=== PATIENT | female | born 1935 | race Caucasian/White ===

== ENCOUNTER → 2016-06-03 | Outpatient (CLI) | payer MEDICARE ==
[~2016-06-03] MED LIST: DOCU-143 PO; ESTR42.52 VG; HYDR-3454 PO; PNT40TEC PO; SCR1T1 PO
--- OUTSIDE RECORDS SUMMARY | 2016-06-03 13:54 | XMS REPORT | Continuity of Care Document ---
Author Author [facility] Organization [facility] Address Unknown Phone Unavailable Care Team Providers Care Hr Receptionist Name Role Phone MERLINE GOSS MD PCP Insurance Providers Payer Name Policy Number Subscriber Name Relationship Wps Medicare [id number] Diana Moon 18 Self / Same As Patient Blue [employer] Mcr Supp [id number] Diana Moon 18 Self / Same As Patient Advance Directives Directive Response Recorded Date/Time Advance Directives No 12/18/15 11:30am Health Care Power of Lozenge Maker No 12/18/15 11:30am Organ Donor No 12/18/15 11:30am Resuscitation Status Full Code 12/18/15 11:30am Problems No problem information available. Medications Current Home Medications Medication Dose Units Route Directions Days/Qty Instructions Start Date Sucralfate 1 Gm 1 Gm Oral Before Meals And At Bedtime 09/10/14 Estradiol 42.5 Gm 1 Appful Vaginal Weekly take on Tuesday09/10/14 Hydrocodone/Acetaminophen 1 Each 1 Each Oral Q4-6HRS as needed for Pain 30 12/18/15 Docusate Sodium 100 Mg 100 Mg Oral Twice A Day for Constipation 60 Past Home Medications Medication Directions Ordered Status Pantoprazole Sod 40 Mg Tab, 40 Mg Oral Daily 09/10/14 Discontinued Social History Social History Problem Response Recorded Date/Time Recent Foreign Travel No 12/18/2015 11:30am Recent Infectious Disease Exposure No 12/18/2015 11:30am Smoking Status Never a Smoker 12/18/2015 1:24pm Do you dip or chew tobacco? No 09/11/2014 7:17am Query Response Start Date Stop Date Smoking Status Never a Smoker Hospital Discharge Instructions Patient Instructions Physician Instructions Plan of Care/Instructions/FU: Follow up with Dr. Torres in 2-3 weeks. Take OTC analgesic for pain Activity as Tolerated: No Discharge Diet: No Restrictions Other Inst to Patient Follow up Appt: Make appointment for 2-3 weeks. Instructions: No lifting greater than 10 pounds. No strenuous activity. May shower in 24 hours, no tub bath or soaking. Use incentive spirometer at home as directed. No Smoking Skin/Wound Care: May remove bandages. You need to leave the white strips over incision on they will fall off on their own. Symptoms to Report: Appetite Changes, Extremity Discoloration, Numbness/Tingling, Swelling Increased, Bleeding Excessive, Eyesight Changes, Pain Increased, Urine Color Change, Constipation(Persistent), Fever over 101 degree F, Pain/Pressure in chest, Urinating Difficulty, Cough Up/Vomit Blood, Heart Beat Irreg/Pounding, Pain/Pressure in jaw, Vaginal Bleeding Increase, Cramps in feet or legs, Lightheadedness, Pain/Pressure in shoulder, Diarrhea(Persistent), Memory Changes Suddenly, Questions/Concerns, Weight gain consecutive days, Dizziness/Fainting, Nausea/Vomiting, Shortness of Breath, Weight gain over 2 pounds If questions or concerns contact your physician Or seek help at emergency department. Care Plan Patient Instructions:: Follow up with Dr. Torres in 2-3 weeks. Take OTC analgesic for pain Plan of Care Discharge Date 12/18/15 4:10pm Instructions/Education Provided ANESTHESIA INSTRUCTIONS POSTOP Prescriptions See Medication Section Functional Status No functional status results. Allergies, Adverse Reactions, Alerts Allergen Type Severity Reaction Status Last Updated meperidine HCl Allergy Unknown Active 11/02/11 ciprofloxacin HCl Allergy Unknown Active 11/02/11 Iodinated Contrast Media - IV Dye Allergy Unknown Active 09/11/14 Penicillins ([id number]) Allergy Unknown Active 09/11/14 Sulfa (Sulfonamide Antibiotics) ([id number]) Allergy Unknown Active iodine ([id number]) Allergy Unknown Active 09/11/14 Codeine Allergy Unknown N/V Active 09/11/14 ciprofloxacin ([id number]) Allergy Unknown Active 11/02/11 Levofloxacin Allergy Unknown Active 12/15/15 MUSHROOMS Allergy Unknown Active 11/02/11 Immunizations No immunization records. Vital Signs Acute Vital Signs Vital Response Date/Time Temperature (Fahrenheit) 97.8 degrees F (97.6 - 99.5) 12/18/2015 4:10pm Temperature (Calculated Celsius) 36.36416 degrees C (36.4 - 37.5) 12/18/2015 3:35pm Temperature Source Temporal 12/18/2015 4:10pm Pulse Rate (adult) 97 bpm (60 - 90) 12/18/2015 4:10pm Respiratory Rate 18 bpm (12 - 24) 12/18/2015 4:10pm O2 Sat by Pulse Oximetry 98 % (88 - 100) 12/18/2015 4:10pm Blood Pressure 160/73 mm Hg 12/18/2015 4:10pm Blood Pressure Mean 107 mm Hg 12/18/2015 11:30am Pain Numeric Pain Scale 2 12/18/2015 4:10pm Pain Intensity 2 12/18/2015 3:35pm Height (Feet) 5 feet 12/18/2015 11:30am Height (Inches) 2.00 inches 12/18/2015 11:30am Height (Calculated Centimeters) 157.549390 cm 12/18/2015 11:30am Weight (Pounds) 115 pounds 12/18/2015 11:30am Weight (Ounces) 6.0 oz 12/18/2015 11:30am Weight (Calculated Grams) 51308.22 gm 12/18/2015 11:30am Weight (Calculated Kilograms) 52.201530 kilograms 12/18/2015 11:30am Calculated BMI 21.1 12/18/2015 11:30am Capillary Refill Capillary Refill Less Than 3 Seconds 12/18/2015 11:30am Results Pending Laboratory Results Test Name Collection Date/Time Pending Microbiology Results Procedure Source Collection Date/Time Procedures Procedure Status Date Provider(s) Repair of incisional hernia Completed 12/18/15 ZANE TORRES DO Encounters Encounter Location Arrival/Admit Date Discharge/Depart Date Attending Provider Departed [facility] 12/18/15 11:00am 12/18/15 4:10pm ZANE TORRES DO Departed Clinic [facility] 12/15/15 12:28pm 12/15/15 1: 04pm ZANE TORRES DO
--- NOTE | 2016-06-03 19:01 | Diagnostic Imaging Report ---
Bilateral screening mammogram The current study was also evaluated with a Computer Aided Detection (CAD) system. Indication: Screening. No current complaints stated on the questionnaire. COMPARISON: 04/22/15. FINDINGS: The breasts are composed of heterogeneously dense parenchyma which may decrease mammographic sensitivity. No mass, architectural distortion or suspicious cluster of calcification is identified. Allowing for technique and positional differences, no suspicious change is seen. IMPRESSION: No significant change. ACR BI-RADS Category 2: Benign findings. Result letter will be mailed to the patient. Note: At least 10% of breast cancer is not imaged by mammography. Dictated by: Dictated on workstation # [id number]
== END ==
LOC: RAD 13:51
PROVIDERS: ATTEND Nurse Practitioner
DX: Z12.31 Encounter for screening mammogram for malignant neoplasm of breast (principal)
CPT/HCPCS: 77067

== ENCOUNTER → 2018-02-24 | Outpatient (CLI) | payer MEDICARE ==
[2018-02-24 08:11] LABS: BASOPHILS % (AUTO) 1 % (0-10); EOSINOPHILS # (AUTO) 0.2 10^3/uL (0.0-0.3); EOSINOPHILS % (AUTO) 3 % (0-10); HEMATOCRIT 39 % (35-52); HEMOGLOBIN 12.5 G/DL (11.5-16.0); LYMPHOCYTES # (AUTO) 2.4 X 10^3 (1.0-4.0); LYMPHOCYTES % (AUTO) 37 % (12-44); MEAN CORPUSCULAR HEMOGLOBIN 31 PG (25-34); MEAN CORPUSCULAR HGB CONC 32 G/DL (32-36); MEAN CORPUSCULAR VOLUME 96 FL (80-99); MEAN PLATELET VOLUME 9.8 FL (7.4-10.4); MONOCYTES # (AUTO) 0.6 X 10^3 (0.0-1.0); MONOCYTES % (AUTO) 8 % (0-12); NEUTROPHILS # (AUTO) 3.5 X 10^3 (1.8-7.8); NEUTROPHILS % (AUTO) 52 % (42-75); PLATELET COUNT 200 10^3/uL (130-400); RED BLOOD COUNT 4.06 10^6/uL (4.35-5.85); RED CELL DISTRIBUTION WIDTH 12.4 % (10.0-14.5); WHITE BLOOD COUNT 6.7 10^3/uL (4.3-11.0)
[2018-02-24 08:29] LABS: ALANINE AMINOTRANSFERASE 12 U/L (0-55); ALKALINE PHOSPHATASE 84 U/L (40-136); BILIRUBIN,TOTAL 0.7 MG/DL (0.1-1.0); BUN/CREATININE RATIO 26; CALCIUM 9.6 MG/DL (8.5-10.1); CARBON DIOXIDE 24 MMOL/L (21-32); CHLORIDE 107 MMOL/L (98-107); CHOLESTEROL 226 MG/DL (< 200); CREATININE SERUM 0.81 MG/DL (0.60-1.30); GFR ESTIMATED > 60; GLUCOSE 88 MG/DL (70-105); HDL CHOLESTEROL 64 MG/DL (40-60); POTASSIUM 3.9 MMOL/L (3.6-5.0); SODIUM 141 MMOL/L (135-145); TOTAL PROTEIN 6.7 GM/DL (6.4-8.2); TRIGLYCERIDES 81 MG/DL (<150); VLDL CHOLESTEROL 16 MG/DL (5-40)
[2018-02-24 08:50] LABS: FREE T4 (FREE THYROXINE) 0.86 NG/DL (0.70-1.48)
== END ==
LOC: LAB 07:47
PROVIDERS: ATTEND Internal Medicine
DX: E78.5 Hyperlipidemia, unspecified (principal); D64.9 Anemia, unspecified; R73.9 Hyperglycemia, unspecified
CPT/HCPCS: 36415; 80053; 80061; 83036; 84439; 84443; 85025

== ENCOUNTER → 2018-06-21 | Outpatient (CLI) | payer MEDICARE ==
--- NOTE | 2018-06-21 15:40 | Diagnostic Imaging Report ---
EXAMINATION: Magnetic resonance imaging of the right knee without intravenous contrast DATE: June 21, 2018. COMPARISON: None. INDICATION: 83-year-old female, right knee pain and stiffness. TECHNIQUE: Multiplanar, multisequence non contrast enhanced MR imaging was accomplished. FINDINGS: MENISCI: There is an oblique tear involving the anterior horn/body junction, body and posterior horn of the medial meniscus extending near the posterior root attachment. There is no current pronounced medial meniscal extrusion. There is a longitudinal horizontal type tear involving the anterior horn, body and posterior horn of the lateral meniscus. LIGAMENTS AND TENDONS: The anterior and posterior cruciate ligaments are intact. The medial collateral ligament is intact. The iliotibial band, mid third lateral capsular ligament, fibular collateral ligament, biceps femoris tendon and conjoined tendon are intact. The quadriceps tendon and patella ligament are intact. JOINT: There is a full-thickness cartilage fissure of the lateral patellar facet with underlying subchondral cystic changes and degenerative related marrow edema. The medial and lateral compartment cartilage is grossly intact. There is no knee joint effusion, prominent synovitis, or intra-articular body. BONE: The additional bone marrow signal is unremarkable. Specifically, negative for fracture, osteomyelitis, osteonecrosis, or marrow replacing process. BURSAE AND SOFT TISSUES: There is a very small amount of fluid within the popliteal fossa without sizable Acosta's cyst. IMPRESSION: 1. Oblique tear involving the anterior horn, body, posterior horn and extending near the posterior root attachment of the medial meniscus without current pronounced medial meniscal extrusion. 2. Longitudinal horizontal type tear involving the anterior horn, body and posterior horn of the lateral meniscus. 3. Intact anterior and posterior cruciate ligaments. Additional ligaments and tendons are intact. 4. Mild patellofemoral compartment osteoarthritis. No knee joint effusion. 5. No acute fracture, bone contusion or evidence of osteonecrosis. Dictated by: Dictated on workstation # [id number]
== END ==
LOC: RAD 12:14
PROVIDERS: ATTEND Orthopaedic Surgery
DX: M23.211 Derangement of anterior horn of medial meniscus due to old tear or injury, right knee (principal); M23.221 Derangement of posterior horn of medial meniscus due to old tear or injury, right knee; M23.241 Derangement of anterior horn of lateral meniscus due to old tear or injury, right knee; M23.251 Derangement of posterior horn of lateral meniscus due to old tear or injury, right knee; M17.11 Unilateral primary osteoarthritis, right knee
CPT/HCPCS: 73721

== ENCOUNTER 2018-09-25 09:34 | Emergency (ER) | payer MEDICARE ==
[~2018-09-25] VITALS: Ht 160 cm; Wt 53.5 kg
[~2018-09-25 09:34] MED LIST changes: -HYDR-3454 PO; +HYDR-3455 PO
--- NOTE | 2018-09-25 09:40 | NUR ---
PATIENT GAURAV ROOM, VERY ANXIOUS, VERBALIZES SHE BECOMES VERY NERVOUS WHEN AT THE DOCTORS OFFICE. DAUGHTER IS AT BEDSIDE. SEE CHART FOR ASSESSMENT. CALL LIGHT WITHIN REACH.
--- NOTE | 2018-09-25 09:50 | NUR ---
UP AND AMBULITORY TO BATHROOM
--- NOTE | 2018-09-25 09:57 | NUR ---
UA SENT TO LAB, PATIENT MADE COMFORTABLE IN BED WITH CALL LIGHT IN REACH, DENIES ADDITIONAL NEEDS AT THIS TIME, WILL CONTINUE TO MONITOR
--- NOTE | 2018-09-25 10:20 | NUR ---
UP TO RESTROOM ESCORTED BY DAUGHTER. UPON RETURNING TO ROOM WARM BLANKET GIVEN TO PATIENT. MONITORING MAINTAINED.
[2018-09-25 10:23] LABS: BASOPHILS % (AUTO) 1 % (0-10); EOSINOPHILS # (AUTO) 0.1 10^3/uL (0.0-0.3); EOSINOPHILS % (AUTO) 1 % (0-10); HEMATOCRIT 44 % (35-52); HEMOGLOBIN 14.6 G/DL (11.5-16.0); LYMPHOCYTES # (AUTO) 1.6 X 10^3 (1.0-4.0); LYMPHOCYTES % (AUTO) 23 % (12-44); MEAN CORPUSCULAR HEMOGLOBIN 31 PG (25-34); MEAN CORPUSCULAR HGB CONC 33 G/DL (32-36); MEAN CORPUSCULAR VOLUME 93 FL (80-99); MEAN PLATELET VOLUME 10.1 FL (7.4-10.4); MONOCYTES # (AUTO) 0.5 X 10^3 (0.0-1.0); MONOCYTES % (AUTO) 8 % (0-12); NEUTROPHILS # (AUTO) 4.8 X 10^3 (1.8-7.8); NEUTROPHILS % (AUTO) 68 % (42-75); PLATELET COUNT 194 10^3/uL (130-400); RED CELL DISTRIBUTION WIDTH 12.5 % (10.0-14.5)
[2018-09-25 10:27] LABS: BILIRUBIN,URINE NEGATIVE (NEGATIVE); CLARITY,URINE CLEAR; COLOR,URINE YELLOW; GLUCOSE, URINE (UA) NEGATIVE (NEGATIVE); KETONES,URINE NEGATIVE (NEGATIVE); LEUKOCYTE ESTERASE ,URINE 3+ (NEGATIVE); NITRITE,URINE POSITIVE (NEGATIVE); PH,URINE 5 (5-9); PROTEIN,URINE NEGATIVE (NEGATIVE); UROBILINOGEN,URINE NORMAL (NORMAL)
[2018-09-25] MEDS ORDERED: CLOB15CR2 (10:37)
[2018-09-25] MEDS ORDERED: TR1C15 (10:37)
[2018-09-25] MEDS ORDERED: SUCR1TAB (10:37)
[2018-09-25] MEDS ORDERED: EST30C (10:37)
[2018-09-25] MEDS ORDERED: DZPM2T (10:38)
[2018-09-25 10:48] LABS: ALANINE AMINOTRANSFERASE 18 U/L (0-55); ALBUMIN 4.7 GM/DL (3.2-4.5); ALKALINE PHOSPHATASE 98 U/L (40-136); BILIRUBIN,TOTAL 0.6 MG/DL (0.1-1.0); BUN/CREATININE RATIO 15; CALCIUM 10.2 MG/DL (8.5-10.1); CARBON DIOXIDE 24 MMOL/L (21-32); CHLORIDE 105 MMOL/L (98-107); CREATININE SERUM 0.98 MG/DL (0.60-1.30); GFR ESTIMATED 54; GLUCOSE 128 MG/DL (70-105); POTASSIUM 3.5 MMOL/L (3.6-5.0); SODIUM 139 MMOL/L (135-145); TOTAL PROTEIN 8.4 GM/DL (6.4-8.2)
--- NOTE | 2018-09-25 10:54 | ED General ---
General Chief Complaint: Head/Cervical Problems Stated Complaint: SHAKY/WEAKNESS PRESSURE IN HEAD/BLURRED VISION Nursing Triage Note: SHAKING THIS AM COULDNT FOCUS, FEELS LOTS OF PRESSURE IN HER HEAD AND EARS, SINUS PAIN HEART RACING. Nursing Sepsis Screen: No Definite Risk Source of Information: Patient Exam Limitations: No Limitations History of Present Illness Date Seen by Provider: Sep 25, 2018 Time Seen by Provider: 09:45 Initial Comments This 83-year-old woman presents to the emergency room accompanied by her daughter with a constellation of symptoms upon waking this morning that include shakiness, lightheadedness, anxiousness, and hypertension. She does not n ormally have hypertension but does get hypertensive and tachycardic with anxiety. She has Valium she takes when anxious. She did take that this morning but it did not resolve her symptoms. She has had some headache with pressure in her head. She states her heart was racing at the time and she had difficulty focusing her eyes. She reports having a 48-hour heart monitor evaluation 3 or 4 years ago for tachycardia. She reports there were some "skipped beats" but no other abnormalities. Patient is relatively healthy. She recently established care with Dr. Hurley. Systolic blood pressure on initial assessment was over 200. She is feeling better now. Allergies and Home Medications Allergies Coded Allergies: Iodinated Contrast- Oral and IV Dye (Verified Allergy, Unknown, 12/20/17) Penicillins (Verified Allergy, Unknown, 12/20/17) Sulfa (Sulfonamide Antibiotics) (Verified Allergy, Unknown, 12/20/17) cephalexin (Verified Allergy, Unknown, 09/25/18) ciprofloxacin (Verified Allergy, Unknown, 09/25/18) ciprofloxacin HCl (Verified Allergy, Unknown, 09/25/18) codeine (Verified Allergy, Unknown, N/V, 12/20/17) iodine (Unverified Allergy, Unknown, 09/11/14) levofloxacin (Verified Allergy, Unknown, 12/15/15) meperidine HCl (Unverified Allergy, Unknown, 11/02/11) shellfish derived (Verified Allergy, Unknown, 09/25/18) Uncoded Allergies: MUSHROOMS (Allergy, Unknown, 11/02/11) Home Medications Nitrofurantoin Monohyd/M-Cryst 100 Mg Capsule, 1 TAB PO BID Prescribed by: BRANDON MACHADO on 09/25/18 1149 Propranolol HCl 20 Mg Tablet, 20 MG PO BID Prescribed by: BRANDON MACHADO on 09/25/18 1149 Patient Home Medication List Home Medication List Reviewed: Yes Review of Systems Review of Systems Constitutional: weakness EENTM: see HPI Respiratory: no symptoms reported Cardiovascular: see HPI Gastrointestinal: no symptoms reported Genitourinary: no symptoms reported : No Musculoskeletal: no symptoms reported Skin: no symptoms reported Psychiatric/Neurological: See HPI Hematologic/Lymphatic: No Symptoms Reported Immunological/Allergic: no symptoms reported Past Jwuzemi-Huchzc-Fwmhns Hx Past Med/Social Hx: Reviewed and Corrections made Patient Social History Alcohol Use: Denies Use Recreational Drug Use: No Smoking Status: Never a Smoker Former Smoker, Quit: Dec 14, 1969 2nd Hand Smoke Exposure: No Recent Foreign Travel: No Contact w/Someone Who Travel: No Recent Infectious Disease Expo: No Recent Hopitalizations: No Immunizations Up To Date Tetanus Booster (TDap): Unknown PED Vaccines UTD: No Seasonal Allergies Seasonal Allergies: No Past Medical History Surgeries: Yes ( EXP.LAP; R. 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 6.0oz. 53.936182gq; 21.7 BMI Method:Stated General Appearance: No Apparent Distress, WD/WN HEENT: PERRL/EOMI, Normal ENT Inspection, Pharynx Normal Neck: Normal Inspection; No Carotid Bruit, No JVD Respiratory: Lungs Clear, Normal Breath Sounds, No Accessory Muscle Use, No Respiratory Distress Cardiovascular: Regular Rate, Rhythm, No Edema, No Murmur Gastrointestinal: Normal Bowel Sounds, Non Tender, Soft Extremity: Normal Inspection, No Pedal Edema Neurologic/Psychiatric: Alert, Oriented x3, No Motor/Sensory Deficits, Normal Mood/Affect, executive director of nursing II-XII Norm as Tested, Other (normal finger to nose and heel to ramírez) Skin: Normal Color, Warm/Dry Progress/Results/Core Measures Suspected Sepsis Recent Fever Within 48 Hours: No Infection Criteria Present: None New/Unexplained Altered Menta: No Sepsis Screen: No Definite Risk SIRS Temperature:96.9 Pulse: 106 Respiratory Rate: 18 Laboratory Tests 09/25/18 10:12: White Blood Count 7.0 Blood Pressure 202 /79 Mean: 120 Laboratory Tests 09/25/18 10:12: Creatinine 0.98, Platelet Count 194, Total Bilirubin 0.6 Results/Orders Lab Results Laboratory Tests Test 09/25/18 09:57 09/25/18 10:12 09/25/18 10:24 Range/Units Urine Color YELLOW Urine Clarity CLEAR Urine pH 5 5-9 Urine Specific [place] 1.015 L 1.016-1.022 Urine Protein NEGATIVE NEGATIVE Urine Glucose (UA) NEGATIVE NEGATIVE Urine Ketones NEGATIVE NEGATIVE Urine Nitrite POSITIVE H NEGATIVE Urine Bilirubin NEGATIVE NEGATIVE Urine Urobilinogen NORMAL NORMAL MG/DL Urine Leukocyte Esterase 3+ H NEGATIVE Urine RBC (Auto) 2+ H NEGATIVE Urine RBC 5-10 H /HPF Urine WBC 10-25 H /HPF Urine Squamous Epithelial Cells 2-5 /HPF Urine Crystals NONE /LPF Urine Bacteria LARGE H /HPF Urine Casts NONE /LPF Urine Mucus NEGATIVE /LPF Urine Culture Indicated YES White Blood Count 7.0 4.3-11.0 10^3/uL Red Blood Count 4.72 4.35-5.85 10^6/uL Hemoglobin 14.6 11.5-16.0 G/DL Hematocrit 44 35-52 % Mean Corpuscular Volume 93 80-99 FL Mean Corpuscular Hemoglobin 31 25-34 PG Mean Corpuscular Hemoglobin Concent 33 32-36 G/DL Red Cell Distribution Width 12.5 10.0-14.5 % Platelet Count 194 130-400 10^3/uL Mean Platelet Volume 10.1 7.4-10.4 FL Neutrophils (%) (Auto) 68 42-75 % Lymphocytes (%) (Auto) 23 12-44 % Monocytes (%) (Auto) 8 0-12 % Eosinophils (%) (Auto) 1 0-10 % Basophils (%) (Auto) 1 0-10 % Neutrophils # (Auto) 4.8 1.8-7.8 X 10^3 Lymphocytes # (Auto) 1.6 1.0-4.0 X 10^3 Monocytes # (Auto) 0.5 0.0-1.0 X 10^3 Eosinophils # (Auto) 0.1 0.0-0.3 10^3/uL Basophils # (Auto) 0.0 0.0-0.1 10^3/uL Sodium Level 139 135-145 MMOL/L Potassium Level 3.5 L 3.6-5.0 MMOL/L Chloride Level 105 98-107 MMOL/L Carbon Dioxide Level 24 21-32 MMOL/L Anion Gap 10 5-14 MMOL/L Blood Urea Nitrogen 15 7-18 MG/DL Creatinine 0.98 0.60-1.30 MG/DL Estimat Glomerular Filtration Rate 54 BUN/Creatinine Ratio 15 Glucose Level 128 H 70-105 MG/DL Calcium Level 10.2 H 8.5-10.1 MG/DL Corrected Calcium 8.5-10.1 MG/DL Total Bilirubin 0.6 0.1-1.0 MG/DL Aspartate Amino Transf (AST/SGOT) 27 5-34 U/L Alanine Aminotransferase (ALT/SGPT) 18 0-55 U/L Alkaline Phosphatase 98 40-136 U/L Total Protein 8.4 H 6.4-8.2 GM/DL Albumin 4.7 H 3.2-4.5 GM/DL Glucometer 121 H 70-110 MG/DL My Orders Orders - BRANDON ARTIS MD Cbc With Automated Diff (09/25/18 09:46) Comprehensive Metabolic Panel (09/25/18 09:46) Ua Culture If Indicated (09/25/18 09:46) Accucheck Stat ONCE (09/25/18 09:46) Ed Iv/Invasive Line Start (09/25/18 09:46) Ekg Tracing (09/25/18 10:58) Monitor-Rhythm Ecg Trace Only (09/25/18 10:58) Urine Culture (09/25/18 09:57) Vital Signs/I&O Capillary Refill : Less Than 3 Seconds Blood Pressure Mean: 120 Point of Care Testing Finger Stick Blood Glucose: 121 Progress Note : Progress Note Labs were reviewed. Patient was found to have urinary tract infection. Given her extensive antibiotic allergies, Macrobid was prescribed. Because patient has episodes of hypertension, tachycardia, and anxiety, a trial of propranolol was prescribed. Close follow-up with her primary care provider was advised. ECG Initial ECG Impression Date: Sep 25, 2018 Initial ECG Impression Time: 11:04 Initial ECG Rate: 101 Initial ECG Rhythm: S.Tach Comment Sinus tachycardia with no ST elevation or depression. No abnormal intervals or axis deviation. Departure Impression Primary Impression: Sinus tachycardia Additional Impressions: Urinary tract infection Qualified Codes: N39.0 - Urinary tract infection, site not specified Anxiety Episode of hypertension Disposition: HOME, SELF-CARE Condition: Improved Departure-Patient Inst. Referrals: MIKE HURLEY DO (PCP/Family) Primary Care Physician Patient Instructions: Sinus Tachycardia (DC), Urinary Tract Infection, Adult (DC) Add. Discharge Instructions: For treatment of your bladder infection continue to drink plenty of clear liquids and complete your antibiotics as prescribed. You may open the capsules and empty into food or drink if you cannot swallow the capsule. Review urine culture results with your primary care provider later in the week. Start the trial of propranolol area and stop if it causes extreme fatigue or lightheadedness. Some mild fatigue can be expected in the first couple weeks of use. Follow-up with your primary care provider for further prescription if it works well for you. This medication should help with blood pressure and anxiety. Follow-up with your primary care provider in one to 2 weeks to recheck blood pressure. Return to the emergency room if you have worsening symptoms. All discharge instructions reviewed with patient and/or family. Voiced under standing. Scripts Nitrofurantoin Monohyd/M-Cryst (Macrobid 100 mg Capsule) 100 Mg Capsule 1 TAB PO BID, #14 CAP Prov: BRANDON ARTIS MD 09/25/18 Propranolol HCl (Propranolol HCl) 20 Mg Tablet 20 MG PO BID, #60 TAB Prov: BRANDON ARTIS MD 09/25/18 Copy Copies To 1: MIKE HURLEY JOSHUA T MD Sep 25, 2018 10:54
--- NOTE | 2018-09-25 11:00 | NUR ---
NEW ORDERS FOR EKG AND HEART MONITOR. IN ROOM TO COMPLETE TASKS. TESTING EXPLAINED TO PATIENT AND DAUGHTER. MONITORING MAINTAINED, CALL LIGHT IN REACH.
[2018-09-25 11:04] LABS: BACTERIA,URINE LARGE /HPF
[2018-09-25] MEDS ORDERED: PROP20TA5 PO ×2 (11:45→11:49)
[2018-09-25] MEDS ORDERED: NITR-65 PO (11:49)
[2018-09-25 11:52] VITALS: BP 180/70
== END 2018-09-25 11:52 | disposition home or self-care (01) ==
LOC: EDUNIT# 09:34 → ER 09:36
DX: G43.909 Migraine, unspecified, not intractable, without status migrainosus (principal); K21.9 Gastro-esophageal reflux disease without esophagitis; F41.9 Anxiety disorder, unspecified; N39.0 Urinary tract infection, site not specified; I10 Essential (primary) hypertension; R00.0 Tachycardia, unspecified; Z91.041 Radiographic dye allergy status; Z88.0 Allergy status to penicillin; Z88.2 Allergy status to sulfonamides; Z85.038 Personal history of other malignant neoplasm of large intestine; Z88.1 Allergy status to other antibiotic agents; Z88.5 Allergy status to narcotic agent; Z88.8 Allergy status to other drugs, medicaments and biological substances; Z87.891 Personal history of nicotine dependence; Z90.49 Acquired absence of other specified parts of digestive tract; Z98.890 Other specified postprocedural states; Z90.710 Acquired absence of both cervix and uterus
CPT/HCPCS: 36415; 80053; 81000; 82962; 85025; 87077; 87088; 87186; 93005; 93041

== ENCOUNTER → 2019-01-26 | Outpatient (CLI) | payer MEDICARE ==
[~2019-01-26] MED LIST changes: +CLOB15CR2; +DZPM2T; +EST30C; +NITR-65 PO; +PROP20TA5 PO; +SUCR1TAB; +TR1C15
[2019-01-26 09:05] LABS: BASOPHILS % (AUTO) 0 % (0-10); EOSINOPHILS # (AUTO) 0.4 10^3/uL (0.0-0.3); EOSINOPHILS % (AUTO) 5 % (0-10); HEMATOCRIT 41 % (35-52); HEMOGLOBIN 13.1 G/DL (11.5-16.0); LYMPHOCYTES # (AUTO) 2.2 X 10^3 (1.0-4.0); LYMPHOCYTES % (AUTO) 30 % (12-44); MEAN CORPUSCULAR HEMOGLOBIN 30 PG (25-34); MEAN CORPUSCULAR HGB CONC 32 G/DL (32-36); MEAN CORPUSCULAR VOLUME 94 FL (80-99); MEAN PLATELET VOLUME 9.7 FL (7.4-10.4); MONOCYTES # (AUTO) 0.7 X 10^3 (0.0-1.0); MONOCYTES % (AUTO) 10 % (0-12); NEUTROPHILS % (AUTO) 55 % (42-75); PLATELET COUNT 209 10^3/uL (130-400); RED CELL DISTRIBUTION WIDTH 13.1 % (10.0-14.5); WHITE BLOOD COUNT 7.2 10^3/uL (4.3-11.0)
[2019-01-26 09:27] LABS: ALANINE AMINOTRANSFERASE 15 U/L (0-55); ALKALINE PHOSPHATASE 84 U/L (40-136); BILIRUBIN,TOTAL 0.6 MG/DL (0.1-1.0); BUN/CREATININE RATIO 20; CALCIUM 9.6 MG/DL (8.5-10.1); CARBON DIOXIDE 24 MMOL/L (21-32); CHLORIDE 106 MMOL/L (98-107); CHOLESTEROL 242 MG/DL (< 200); CREATININE SERUM 0.83 MG/DL (0.60-1.30); GFR ESTIMATED > 60; GLUCOSE 86 MG/DL (70-105); HDL CHOLESTEROL 62 MG/DL (40-60); POTASSIUM 4.3 MMOL/L (3.6-5.0); SODIUM 141 MMOL/L (135-145); TOTAL PROTEIN 7.6 GM/DL (6.4-8.2); TRIGLYCERIDES 103 MG/DL (<150); VLDL CHOLESTEROL 21 MG/DL (5-40)
== END ==
LOC: LAB 08:46
PROVIDERS: ATTEND Internal Medicine
DX: Z00.00 Encounter for general adult medical examination without abnormal findings (principal); E78.00 Pure hypercholesterolemia, unspecified; E78.1 Pure hyperglyceridemia; R73.9 Hyperglycemia, unspecified
CPT/HCPCS: 36415; 80053; 80061; 83036; 84443; 85025

== ENCOUNTER → 2019-10-18 | Outpatient (CLI) | payer MEDICARE ==
[2019-10-18 08:48] LABS: BASOPHILS % (AUTO) 1 % (0-10); EOSINOPHILS # (AUTO) 0.1 10^3/uL (0.0-0.3); EOSINOPHILS % (AUTO) 2 % (0-10); HEMATOCRIT 43 % (35-52); HEMOGLOBIN 13.9 G/DL (11.5-16.0); LYMPHOCYTES # (AUTO) 2.1 X 10^3 (1.0-4.0); LYMPHOCYTES % (AUTO) 27 % (12-44); MEAN CORPUSCULAR HEMOGLOBIN 31 PG (25-34); MEAN CORPUSCULAR HGB CONC 33 G/DL (32-36); MEAN CORPUSCULAR VOLUME 95 FL (80-99); MEAN PLATELET VOLUME 10.1 FL (7.4-10.4); MONOCYTES # (AUTO) 0.6 X 10^3 (0.0-1.0); MONOCYTES % (AUTO) 8 % (0-12); NEUTROPHILS # (AUTO) 4.9 X 10^3 (1.8-7.8); NEUTROPHILS % (AUTO) 63 % (42-75); PLATELET COUNT 193 10^3/uL (130-400); RED CELL DISTRIBUTION WIDTH 12.5 % (10.0-14.5); WHITE BLOOD COUNT 7.7 10^3/uL (4.3-11.0)
[2019-10-18 08:56] LABS: CHLORIDE 107 MMOL/L (98-107); POTASSIUM 3.7 MMOL/L (3.6-5.0); SODIUM 140 MMOL/L (135-145)
[2019-10-18 08:57] LABS: ALBUMIN 4.2 GM/DL (3.2-4.5)
[2019-10-18 08:58] LABS: CALCIUM 9.6 MG/DL (8.5-10.1); TRIGLYCERIDES 106 MG/DL (<150); VLDL CHOLESTEROL 21 MG/DL (5-40)
[2019-10-18 08:59] LABS: GLUCOSE 93 MG/DL (70-105); TOTAL PROTEIN 7.8 GM/DL (6.4-8.2)
[2019-10-18 09:00] LABS: CARBON DIOXIDE 22 MMOL/L (21-32)
[2019-10-18 09:01] LABS: BILIRUBIN,TOTAL 0.6 MG/DL (0.1-1.0)
[2019-10-18 09:03] LABS: ALKALINE PHOSPHATASE 90 U/L (40-136); CREATININE SERUM 0.86 MG/DL (0.60-1.30); GFR ESTIMATED > 60
[2019-10-18 09:04] LABS: BUN/CREATININE RATIO 20; CHOLESTEROL 252 MG/DL (< 200)
[2019-10-18 09:05] LABS: HDL CHOLESTEROL 66 MG/DL (40-60)
[2019-10-18 09:06] LABS: ALANINE AMINOTRANSFERASE 14 U/L (0-55)
== END ==
LOC: LAB 08:09
PROVIDERS: ATTEND Internal Medicine
DX: Z13.6 Encounter for screening for cardiovascular disorders (principal); K21.9 Gastro-esophageal reflux disease without esophagitis; D64.9 Anemia, unspecified; R00.2 Palpitations; R73.9 Hyperglycemia, unspecified
CPT/HCPCS: 36415; 80053; 80061; 82728; 83036; 83540; 84443; 85025

== ENCOUNTER 2020-09-19 05:32 | Outpatient (RCR) | payer MEDICARE ==
[~2020-09-19] VITALS: Ht 160 cm; Wt 53.5 kg
[2020-09-23] MEDS ORDERED: PANT40TA2 PO (10:54)
== END 2020-09-19 08:37 | disposition home or self-care (01) ==
LOC: PREOP 05:32
PROVIDERS: ATTEND Surgery
DX: Z01.812 Encounter for preprocedural laboratory examination (principal); R13.10 Dysphagia, unspecified; Z20.822 Contact with and (suspected) exposure to COVID-19
CPT/HCPCS: 87635

== ENCOUNTER 2020-09-23 08:58 | Day surgery (SDC) | payer MEDICARE ==
[~2020-09-23] VITALS: Ht 160 cm; Wt 53.5 kg
[2020-09-23] VITALS (7 sets, daily range): BP systolic 115–191; BP diastolic 53–82
[2020-09-23] MEDS ORDERED: LACTATED RINGERS 1,000 ML IV ONE (09:12)
[2020-09-23] MEDS ORDERED: LACTATED RINGERS 1,000 ML IV STA (09:12)
[2020-09-23] MEDS ORDERED: HURRICAINE EXT TUBE (BENZOCAINE) XX PRN (09:15)
--- NOTE | 2020-09-23 10:01 | Progress Note-Pre Operative ---
Pre-Operative Progress Note H&P Reviewed The H&P was reviewed, patient examined and no changes noted. Date Seen by Provider: Sep 23, 2020 Time Seen by Provider: 10:00 Date H&P Reviewed: Sep 23, 2020 Time H&P Reviewed: 10:00 Pre-Operative Diagnosis: dysphagia, epigastric abd pain ZANE TORRES DO Sep 23, 2020 10:01
[2020-09-23] MEDS ORDERED: PROPOFOL INJECTION 50 ML IV ONE (10:21)
[2020-09-23] MEDS ORDERED: MIDAZOLAM 2 MG/2 ML (VERSED) VIAL ONE (10:22)
--- NOTE | 2020-09-23 10:53 | Progress Note-Post Operative ---
Post-Operative Progess Note Surgeon (s)/Security Assurance Specialist (s) Surgeon ZANE TORRES DO Security Assurance Specialist: na Pre-Operative Diagnosis dysphagia, epigastric abd pain Post-Operative Diagnosis esophageal stricture Procedure & Operative Findings Date of Procedure 09/23/20 Procedure Performed/Findings egd c dilation to 14 mm Anesthesia Type per mechanical cad drafter Estimated Blood Loss Estimated blood loss (mL): scant Specimens/Packing Specimens Removed na ZANE TORRES DO Sep 23, 2020 10:53
[2020-09-23] MEDS ORDERED: PANT40TA2 PO (10:54)
--- NOTE | 2020-09-23 10:54 | Discharge Inst-Simple/Standard ---
Discharge Inst-Standard Discharge Medications New, Converted or Re-Newed RX: Transmitted to Pharmacy Patient Instructions/Follow Up Plan of Care/Instructions/FU: 2 weeks Elias Activity as Tolerated: Yes Discharge Diet: Liquid Diet ( for 2 days then advance as tolerates.) ZANE TORRES DO Sep 23, 2020 10:54
--- NOTE | 2020-09-23 12:00 | Anesthesia-General Post-Op ---
MAC Patient Condition Mental Status/LOC: Same as Preop Cardiovascular: Satisfactory Nausea/Vomiting: Absent Respiratory: Satisfactory Pain: Controlled Complications: Absent Post Op Complications Complications None Follow Up Care/Instructions Patient Instructions None needed. Anesthesiology Discharge Order Discharge Order Patient is doing well, no complaints, stable vital signs, no apparent adverse anesthesia problems. No complications reported per nursing. RADHA OLIVARES CRNA Sep 23, 2020 12:00
--- NOTE | 2020-09-23 14:23 | OPERATIVE REPORT ---
DATE OF SERVICE: 09/23/2020 PREOPERATIVE DIAGNOSIS: Dysphagia. POSTOPERATIVE DIAGNOSES: Esophageal stricture. PROCEDURE: EGD with dilatation to 14 mm. SURGEON: Zane Griffin DO ANESTHESIA: Per DRY MILL OPERATOR. ESTIMATED BLOOD LOSS: Scant. COMPLICATIONS: None. INDICATIONS: The patient is an 85-year-old female with dysphagia symptoms. She understands risks and benefits of procedure and wished to proceed with procedure. Consent was signed in the chart. DESCRIPTION OF PROCEDURE: The patient was taken to the endoscopy suite, placed in left lateral recumbent position. Timeout was performed. Scope was inserted in mouth, down the esophagus, noting an esophageal stricture distal portion. Scope was then continued slowly advanced through the stomach and into the duodenum without difficulty. There were no polyps, masses or ulcerations within the duodenum. Scope was slowly retracted back into the stomach where it was further insufflated. No polyps, masses or ulcerations. Scope was retroflexed noting no other pathology except for a small hiatal hernia. Scope was returned to its normal position, slowly withdrawn to distal esophagus, which had the stricture, balloon dilator was then advanced and serial dilatations were made until up to 14 mm. Then had little scant bleeding, which was then we see any further dilatation. Scope was then slowly retracted back until completely removed. The patient tolerated procedure well without any complications. She was taken to recovery room in stable condition. RECOMMENDATIONS: The patient will be on Protonix 40 mg daily. We will have her follow up in the office to see how she is doing. She may need further dilatations. Job ID: [id number] DocumentID: [id number] Dictated Date: 09/23/2020 10:57:17 Admissions Advisor Date: 09/23/2020 14:21:54 Dictated By: ZANE GRIFFIN DO
== END 2020-09-23 11:20 | disposition home or self-care (01) ==
LOC: ENDO 08:58
PROVIDERS: ATTEND Surgery
DX: K22.2 Esophageal obstruction (principal); K44.9 Diaphragmatic hernia without obstruction or gangrene; K21.9 Gastro-esophageal reflux disease without esophagitis; G43.909 Migraine, unspecified, not intractable, without status migrainosus; Z79.899 Other long term (current) drug therapy; Z87.891 Personal history of nicotine dependence; Z90.710 Acquired absence of both cervix and uterus; Z85.038 Personal history of other malignant neoplasm of large intestine; Z20.822 Contact with and (suspected) exposure to COVID-19; Z82.49 Family history of ischemic heart disease and other diseases of the circulatory system; Z80.9 Family history of malignant neoplasm, unspecified

== ENCOUNTER 2020-11-09 12:12 | Emergency (ER) | payer MEDICARE ==
[~2020-11-09] VITALS: Ht 160 cm; Wt 54.5 kg
[~2020-11-09 12:12] MED LIST changes: +PANT40TA2 PO
--- NOTE | 2020-11-09 12:36 | ED Cardiac General ---
History of Present Illness General Stated Complaint: ELEV BP 190/96 /HEAD PRESSURE/POSS UTI Source: patient History of Present Illness Date Seen by Provider: Nov 09, 2020 Time Seen by Provider: 12:20 Initial Comments PT ARRIVES VIA POV FROM HOME C/O ELEVATED BLOOD PRESSURE STATES SHE WOKE UP AND HAD ALOT OF PRESSURE IN HER HEAD, SO CHECKED HER BLOOD PRESSURE AND IT WAS ELEVATED AT 180/90 TOOK HER BLOOD PRESSURE MEDICATION--PROPRANOLOL 10 MG--AND 1/2 OF VALIUM 2 MG TABLET, AND TYLENOL AT 0830 AND WENT BACK TO BED WOKE UP AND CHECKED HER BP AGAIN AND IT WAS HIGHER--190/96, SO CAME HERE STATES THE PRESSURE IN HER HEAD IS BETTER STATES SHE FEELS A LITTLE LIGHTHEADED, BUT NOT SPINNING SENSATION NO VISION CHANGES NO CHEST PAIN NO SHORTNESS OF BREATH NO PALPITATIONS NO NAUSEA/VOMITING NO FEVER OR RECENT ILLNESS PT HAD COVID-19 VACCINE X 2--IN JUNE / JULY OF THIS YEAR STATES HER NORMAL BP IS 120'S/60'S STATES SHE HAD THIS ONCE BEFORE AND HAD A UTI--WAS NOT HAVING UTI SYMPTOMS THEN, AND DOES NOT HAVE ANY UTI SYMPTOMS NOW. NO MEDICATION CHANGES OR MISSED DOSES OF MEDICATIONS HAD ROUTINE EXAM WITH DR. HURLEY 10/19/20 PCP: DR. HURLEY Allergies and Home Medications Allergies Coded Allergies: Iodinated Contrast Media (Verified Allergy, Unknown, 12/20/17) Penicillins (Verified Allergy, Unknown, 12/20/17) Sulfa (Sulfonamide Antibiotics) (Verified Allergy, Unknown, 12/20/17) cephalexin (Verified Allergy, Unknown, 09/25/18) ciprofloxacin (Verified Allergy, Unknown, 09/25/18) ciprofloxacin HCl (Verified Allergy, Unknown, 09/25/18) codeine (Verified Allergy, Unknown, N/V, 12/20/17) iodine (Unverified Allergy, Unknown, 09/11/14) levofloxacin (Verified Allergy, Unknown, 12/15/15) meperidine HCl (Unverified Allergy, Unknown, 11/02/11) shellfish derived (Verified Allergy, Unknown, 09/25/18) Uncoded Allergies: MUSHROOMS (Allergy, Unknown, 11/02/11) Home Medications Pantoprazole Sodium 40 Mg Tablet., 40 MG PO DAILY Prescribed by: ZANE TORRES on 09/23/20 4544 Propranolol HCl 20 Mg Tablet, 20 MG PO BID Prescribed by: BRANDON MACHADO on 09/25/18 1149 Patient Home Medication List Home Medication List Reviewed: Yes Review of Systems Review of Systems Constitutional: see HPI, dizziness EENTM: No Symptoms Reported Respiratory: No Symptoms Reported Cardiovascular: See HPI; Denies Chest Pain, Denies Edema, Denies Irregular Heart Rate; Lightheadedness; Denies Palpitations, Denies Syncope Gastrointestinal: No Symptoms Reported Genitourinary: No Symptoms Reported Musculoskeletal: no symptoms reported Skin: no symptoms reported Psychiatric/Neurological: See HPI, Anxiety, Headache Endocrine: No Symptoms Reported Hematologic/Lymphatic: No Symptoms Reported Past [id number] Hx Patient Social History Tobacco Use?: No Substance use?: No Alcohol Use?: No Immunizations Up To Date Tetanus Booster (TDap): Unknown PED Vaccines UTD: No Seasonal Allergies Seasonal Allergies: No Past Medical History Surgery/Hospitalization HX: COLECTOMY FOR CANCER Surgeries: Yes Abdominal, Bowel Surgery, Eye Surgery, Gallbladder, Hysterectomy Respiratory: No Currently Using CPAP: No Cardiac: Yes Hypertension Neurological: Yes Headaches /Migraines Reproductive Disorders: No Female Reproductive Disorders: Denies Sexually Transmitted Disease: No HIV/AIDS: No Genitourinary: No Gastrointestinal: Yes (CARCINOMA IN SITU-COLECTOMY) Gastroesophageal Reflux Musculoskeletal: No Endocrine: Yes Hypothyroidsim HEENT: No Loss of Vision: Bilateral Hearing Impairment: Denies 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 6.0oz. 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 Norm as Tested; No Abnormal Cerebellar Tests Skin: Normal Color, Warm/Dry Progress/Results/Core Measures Results/Orders Lab Results Laboratory Tests Test 11/09/20 12:55 11/09/20 13:00 Range/Units White Blood Count 10.3 4.3-11.0 10^3/uL Red Blood Count 4.66 3.80-5.11 10^6/uL Hemoglobin 14.6 11.5-16.0 g/dL Hematocrit 45 35-52 % Mean Corpuscular Volume 96 80-99 fL Mean Corpuscular Hemoglobin 31 25-34 pg Mean Corpuscular Hemoglobin Concent 33 32-36 g/dL Red Cell Distribution Width 12.2 10.0-14.5 % Platelet Count 218 130-400 10^3/uL Mean Platelet Volume 10.4 9.0-12.2 fL Immature Granulocyte % (Auto) 0 % Neutrophils (%) (Auto) 68 42-75 % Lymphocytes (%) (Auto) 23 12-44 % Monocytes (%) (Auto) 6 0-12 % Eosinophils (%) (Auto) 1 0-10 % Basophils (%) (Auto) 1 0-10 % Neutrophils # (Auto) 7.1 1.8-7.8 10^3/uL Lymphocytes # (Auto) 2.4 1.0-4.0 10^3/uL Monocytes # (Auto) 0.6 0.0-1.0 10^3/uL Eosinophils # (Auto) 0.1 0.0-0.3 10^3/uL Basophils # (Auto) 0.1 0.0-0.1 10^3/uL Immature Granulocyte # (Auto) 0.0 0.0-0.1 10^3/uL Sodium Level 141 135-145 MMOL/L Potassium Level 4.3 3.6-5.0 MMOL/L Chloride Level 107 98-107 MMOL/L Carbon Dioxide Level 23 21-32 MMOL/L Anion Gap 11 5-14 MMOL/L Blood Urea Nitrogen 15 7-18 MG/DL Creatinine 0.83 0.60-1.30 MG/DL Estimat Glomerular Filtration Rate > 60 BUN/Creatinine Ratio 18 Glucose Level 111 H 70-105 MG/DL Calcium Level 9.9 8.5-10.1 MG/DL Corrected Calcium 9.7 8.5-10.1 MG/DL Magnesium Level 2.2 1.6-2.4 MG/DL Total Bilirubin 0.6 0.1-1.0 MG/DL Aspartate Amino Transf (AST/SGOT) 27 5-34 U/L Alanine Aminotransferase (ALT/SGPT) 20 0-55 U/L Alkaline Phosphatase 91 40-136 U/L Troponin I < 0.028 <0.028 NG/ML B-Type Natriuretic Peptide 92.7 <100.0 PG/ML Total Protein 7.9 6.4-8.2 GM/DL Albumin 4.2 3.2-4.5 GM/DL TSH [place] Testing 2.75 0.35-4.94 UIU/ML Urine Color YELLOW Urine Clarity CLEAR Urine pH 6.0 5-9 Urine Specific [place] <=1.005 1.016-1.022 Urine Protein NEGATIVE NEGATIVE Urine Glucose (UA) NEGATIVE NEGATIVE Urine Ketones NEGATIVE NEGATIVE Urine Nitrite NEGATIVE NEGATIVE Urine Bilirubin NEGATIVE NEGATIVE Urine Urobilinogen 0.2 < = 1.0 MG/DL Urine Leukocyte Esterase NEGATIVE NEGATIVE Urine RBC (Auto) TRACE-I NEGATIVE Urine RBC RARE /HPF Urine WBC RARE /HPF Urine Squamous Epithelial Cells 2-5 /HPF Urine Crystals NONE /LPF Urine Bacteria NEGATIVE /HPF Urine Casts NONE /LPF Urine Mucus NEGATIVE /LPF Urine Culture Indicated NO My Orders Orders - JOSE BRO DO Ed Iv/Invasive Line Start (11/09/20 12:28) Ekg Tracing (11/09/20 12:28) Monitor-Rhythm Ecg Trace Only (11/09/20 12:28) BNP (11/09/20 12:28) Cbc With Automated Diff (11/09/20 12:28) Comprehensive Metabolic Panel (11/09/20 12:28) Magnesium (11/09/20 12:28) Thyroid Analyzer (11/09/20 12:28) Ua Culture If Indicated (11/09/20 12:28) Troponin I (11/09/20 12:28) Hydralazine Injection (Apresoline Inject (11/09/20 12:45) Medications Given in ED Current Medications Medications Dose Ordered Sig/Oc Route Start Time Stop Time Status Last Admin Dose Admin Hydralazine HCl 10 mg ONCE ONCE IV 11/09/20 12:45 11/09/20 12:46 DC 11/09/20 13:06 10 MG Vital Signs/I&O 11/09/20 12:39 Pulse 85 Resp 18 B/P (MAP) 215/95 (135) Pulse Ox 96 O2 Delivery Room Air Progress Progress Note : Progress Note GIVEN HYDRALAZINE FOR ELEVATED BP BP DOWN AT TIME OF DISMISSAL NO COMPLAINT OF HEADACHE DURING ER STAY Initial ECG Impression Date: Nov 09, 2020 Initial ECG Impression Time: 13:17 Initial ECG Rate: 82 Initial ECG Rhythm: Normal Sinus Departure Impression Primary Impression: HTN (hypertension) Additional Impression: Anxiety Disposition: 01 HOME, SELF-CARE Condition: Improved Departure-Patient Inst. Decision time for Depature: 14:00 Referrals: MIKE HURLEY DO (PCP/Family) Primary Care Physician Patient Instructions: High Blood Pressure (DC), DASH Diet Add. Discharge Instructions: HOME, REST TAKE YOUR REGULAR MEDICATIONS PRESCRIBED FOLLOW UP WITH YOUR DR THIS WEEK FOR FURTHER CARE Scripts Hydralazine HCl (Hydralazine HCl) 10 Mg Tablet 10 MG PO TID PRN for BLOOD PRESSURE, #15 TAB TAKE NEEDED THREE TIMES A DAY FOR SYSTOLIC BP > 160 OR DIASTOLIC BP > 100 Prov: JOSE BRO DO 11/09/20 JOSE BRO DO Nov 09, 2020 12:36
[2020-11-09] MEDS ORDERED: hydrALAZINE (APESOLINE) 20 MG/ML VIAL IV ONE (12:45)
[2020-11-09 13:01] LABS: BASOPHILS # (AUTO) 0.1 10^3/uL (0.0-0.1); BASOPHILS % (AUTO) 1 % (0-10); EOSINOPHILS # (AUTO) 0.1 10^3/uL (0.0-0.3); EOSINOPHILS % (AUTO) 1 % (0-10); HEMATOCRIT 45 % (35-52); HEMOGLOBIN 14.6 g/dL (11.5-16.0); LYMPHOCYTES # (AUTO) 2.4 10^3/uL (1.0-4.0); LYMPHOCYTES % (AUTO) 23 % (12-44); MEAN CORPUSCULAR HEMOGLOBIN 31 pg (25-34); MEAN CORPUSCULAR HGB CONC 33 g/dL (32-36); MEAN CORPUSCULAR VOLUME 96 fL (80-99); MEAN PLATELET VOLUME 10.4 fL (9.0-12.2); MONOCYTES # (AUTO) 0.6 10^3/uL (0.0-1.0); MONOCYTES % (AUTO) 6 % (0-12); NEUTROPHILS # (AUTO) 7.1 10^3/uL (1.8-7.8); NEUTROPHILS % (AUTO) 68 % (42-75); PLATELET COUNT 218 10^3/uL (130-400); WHITE BLOOD COUNT 10.3 10^3/uL (4.3-11.0)
[2020-11-09 13:06] LABS: BILIRUBIN,URINE NEGATIVE (NEGATIVE); CLARITY,URINE CLEAR; COLOR,URINE YELLOW; GLUCOSE, URINE (UA) NEGATIVE (NEGATIVE); KETONES,URINE NEGATIVE (NEGATIVE); LEUKOCYTE ESTERASE ,URINE NEGATIVE (NEGATIVE); NITRITE,URINE NEGATIVE (NEGATIVE); PROTEIN,URINE NEGATIVE (NEGATIVE)
[2020-11-09 13:15] LABS: ALBUMIN 4.2 GM/DL (3.2-4.5); CHLORIDE 107 MMOL/L (98-107); POTASSIUM 4.3 MMOL/L (3.6-5.0); SODIUM 141 MMOL/L (135-145)
[2020-11-09 13:16] LABS: CALCIUM 9.9 MG/DL (8.5-10.1)
[2020-11-09 13:18] LABS: GLUCOSE 111 MG/DL (70-105); TOTAL PROTEIN 7.9 GM/DL (6.4-8.2)
[2020-11-09 13:19] LABS: BILIRUBIN,TOTAL 0.6 MG/DL (0.1-1.0); CARBON DIOXIDE 23 MMOL/L (21-32)
[2020-11-09 13:21] LABS: ALKALINE PHOSPHATASE 91 U/L (40-136); CREATININE SERUM 0.83 MG/DL (0.60-1.30); GFR ESTIMATED > 60
[2020-11-09 13:22] LABS: BUN/CREATININE RATIO 18
[2020-11-09 13:24] LABS: BACTERIA,URINE NEGATIVE /HPF; RBC,URINE RARE /HPF; WBC,URINE RARE /HPF
[2020-11-09 13:24] LABS: ALANINE AMINOTRANSFERASE 20 U/L (0-55); MAGNESIUM 2.2 MG/DL (1.6-2.4)
[2020-11-09 13:44] LABS: TSH (THYROID ANALYZER) 2.75 UIU/ML (0.35-4.94)
[2020-11-09] MEDS ORDERED: HYDR-3922 PO (14:03)
[2020-11-09 14:13] VITALS: BP 151/68
== END 2020-11-09 14:18 | disposition home or self-care (01) ==
LOC: EDUNIT# 12:12 → ER 12:13
DX: I10 Essential (primary) hypertension (principal); F41.9 Anxiety disorder, unspecified; K21.9 Gastro-esophageal reflux disease without esophagitis; Z79.899 Other long term (current) drug therapy
CPT/HCPCS: 36415; 80053; 81000; 83735; 83880; 84443; 84484; 85025; 93005